=== PATIENT | female | born 1980 | race Two or more races ===

== ENCOUNTER 2021-04-23 08:22 | Outpatient (REF) | payer OTHER, SELFPAY ==
[2021-04-27 09:06] LABS: HPV 16 RNA NOT DETECTED (NOT DETECTED); HPV mRNA E6/E7 rflx Detected (Not Detected)
== END 2021-04-23 08:23 | disposition home or self-care (01) ==
LOC: HO.LAB 08:22
PROVIDERS: PCP Hospitalist; Visit Provider Obstetrics & Gynecology
DX: Z01.419 Encounter for gynecological examination (general) (routine) without abnormal findings (principal); Z11.51 Encounter for screening for human papillomavirus (HPV)
CPT/HCPCS: 87624; 87625; 88142

== ENCOUNTER 2021-05-01 14:07 | Outpatient (REF) | payer OTHER, SELFPAY ==
[2021-05-02 02:48] LABS: CT PCR NOT DETECTED (Not Detect.); NG PCR NOT DETECTED (Not Detect.)
== END 2021-05-01 14:08 | disposition home or self-care (01) ==
LOC: HO.LAB 14:07
PROVIDERS: PCP Hospitalist; Visit Provider Obstetrics & Gynecology
DX: R93.89 Abnormal findings on diagnostic imaging of other specified body structures (principal)
CPT/HCPCS: 87491; 87591

== ENCOUNTER 2021-06-03 12:39 | Outpatient (REF) | payer OTHER, SELFPAY ==
--- NOTE | ~2021-06-03 | MM_ITS ---
EXAMINATION: MM SCREENING DIGITAL BREAST TOMOSYNTHESIS, BILATERAL CLINICAL INFORMATION: Screening. Asymptomatic. Age 41. No prior breast imaging. The lifetime risk of breast cancer based on the Tyrer-Cuzick Model is 12%. COMPARISON: None (current study represents initial baseline exam). TECHNIQUE: Digital breast tomosynthesis is performed in both the craniocaudal and mediolateral oblique views along with computer-aided detection (CAD). Synthesized 2D images are generated from the tomosynthesis. FINDINGS: There are scattered areas of fibroglandular density (ACR BI-RADS breast composition Category b). There are no significant masses, abnormal calcifications, or other abnormalities. No architectural abnormality. The axilla and skin contours are unremarkable. MM/MM tomosynthesis screening BI IMPRESSION: No mammographic evidence of malignancy. ASSESSMENT: BI-RADS 1: Negative RECOMMENDATION: Routine annual mammography screening. This patient's information was entered into a reminder system with a target due date for their next mammogram.
== END 2021-06-03 12:40 | disposition home or self-care (01) ==
LOC: HO.MAMMO 12:39
PROVIDERS: Visit Provider Obstetrics & Gynecology
DX: Z12.31 Encounter for screening mammogram for malignant neoplasm of breast (principal)
CPT/HCPCS: 77063; 77067

== ENCOUNTER → 2021-06-10 14:43 | Outpatient (BNVA) | payer OTHER, SELFPAY | PROVIDERS: PCP Hospitalist | DX: Z13.89 Encounter for screening for other disorder (principal) ==

== ENCOUNTER 2021-06-25 13:28 | Outpatient (REF) | payer OTHER, SELFPAY ==
--- NOTE | ~2021-06-25 | US_ITS ---
EXAMINATION: US PELVIS CLINICAL INFORMATION: Urinary tract infection. COMPARISON: None TECHNIQUE: Ultrasound of the pelvis is performed using both transabdominal and transvaginal transducers along with Doppler. Transvaginal imaging is performed due to inadequate visualization transabdominally. FINDINGS: UTERUS: The uterus is anteverted and measures 9.1 x 4.3 x 5.5 cm. Nabothian cysts are seen within the cervix. The double wall endometrial thickness is 6 mm. The uterus is smooth in contour and has normal myometrial echogenicity. No visible fibroid. ADNEXA: Both ovaries are visualized. There is normal color flow to the adnexa. There is no ovarian torsion. There is no pelvic ascites or fluid collection. Right ovary measures 3.0 x 1.5 x 2.2 cm. Volume of 5.2 mL. There is a 1.3 x 1.1 x 1.2 cm simple cyst. Left ovary measures 2.4 x 1.2 x 1.9 cm. There is a small amount of free pelvic fluid identified. US/US pelvic and transvaginal IMPRESSION: 1.3 cm simple-appearing right ovarian cyst. Nabothian cysts. Small amount of free pelvic fluid.
== END 2021-06-25 13:29 | disposition home or self-care (01) ==
LOC: HO.US 13:28
PROVIDERS: Visit Provider Obstetrics & Gynecology
DX: R93.89 Abnormal findings on diagnostic imaging of other specified body structures (principal)
CPT/HCPCS: 76830; 76856

== ENCOUNTER → 2021-07-01 14:00 | Outpatient (BNVA) | payer OTHER, SELFPAY | PROVIDERS: PCP Hospitalist; Visit Provider Obstetrics & Gynecology | DX: R87.810 Cervical high risk human papillomavirus (HPV) DNA test positive (principal); Z32.02 Encounter for pregnancy test, result negative | CPT/HCPCS: 57452; 81025 ==

== ENCOUNTER 2021-09-24 16:05 | Outpatient (REF) | payer OTHER, SELFPAY ==
--- NOTE | ~2021-09-24 | US_ITS ---
EXAMINATION: US RETROPERITONEAL LIMITED (RENAL ONLY) CLINICAL INFORMATION: Calculus of kidney. COMPARISON: None TECHNIQUE: Real-time imaging of the kidneys. FINDINGS: RIGHT KIDNEY: 12.0 x 5.8 x 4.7 cm (SAG x AP x TRV). The kidney is normal in size, contour, and echogenicity. Renal cortical thickness is normal. No focal parenchymal lesions or hydronephrosis. There are small echogenic stones without caliectasis. Upper pole echogenic stones measure 0.3 cm, 0.3 cm, midpole stones measure 0.3 cm and 0.4 cm. LEFT KIDNEY: 10.5 x 5.5 x 5.4 cm (SAG x AP x TRV). The kidney is normal in size, contour, and echogenicity. Renal cortical thickness is normal. No focal parenchymal lesions or hydronephrosis. There is an echogenic stone in the upper pole measuring 0.3 cm without caliectasis. There is mild pelvic fullness. US/US renal BI IMPRESSION: Bilateral nonobstructive echogenic renal calculi. No caliectasis. There is minimal fullness left kidney.
== END 2021-09-24 16:06 | disposition home or self-care (01) ==
LOC: HO.US 16:05
DX: N20.0 Calculus of kidney (principal)
CPT/HCPCS: 76775

== ENCOUNTER 2022-10-23 16:26 | Outpatient (REF) | payer BC, SELFPAY ==
[2022-10-23 18:23] LABS: Alanine Aminotransferase 11 U/L (0-31); Albumin Level 3.9 g/dL (3.5-5.0); Alkaline Phosphatase 54 U/L (39-117); Aspartate Amino Transferase 16 U/L (5-31); Bilirubin Direct 0.1 mg/dL (0.0-0.5); Bilirubin Total 0.3 mg/dL (0.0-1.0); Estimated Glomerular Filt Rate > 60; Total Protein 7.2 g/dL (6.5-8.0)
[2022-10-24 08:51] LABS: ~HepC Num1 0.07 S/CO (0.00-0.79); ~Hepatitis C Antibody Nonreactive (Nonreactive)
[2022-10-24 08:55] LABS: HBS Num1 11.65 mIU/mL (0-7.99); HBsAGNum1 0.42 S/CO (0.00-0.99); Hepatitis B Core Antibody Nonreactive (Nonreactive); Hepatitis B Surface Antigen Negative (Negative); Syphilis Screen Nonreactive (Nonreactive)
[2022-10-24 13:29] LABS: HBS Num2 10.88 mIU/mL (0-7.99); HBS Num3 11.74 mIU/mL (0-7.99); ~Hepatitis B Surface Antibody GRAYZONE (Nonreactive)
[2022-10-25 17:44] LABS: C. trachomatis RNA TMA NOT DETECTED (NOT DETECTED); N. gonorrhoeae RNA TMA NOT DETECTED (NOT DETECTED)
[2022-10-29 14:59] LABS: C. Trachomatis RNA TMA, Throat NOT DETECTED; N. gonorrhoeae RNA TMA, Throat NOT DETECTED
== END 2022-10-23 16:27 | disposition home or self-care (01) ==
LOC: HO.HHCL 16:26
PROVIDERS: Visit Provider Internal Medicine
DX: Z77.21 Contact with and (suspected) exposure to potentially hazardous body fluids (principal)
CPT/HCPCS: 0353U; 36415; 80076; 82565; 86704; 86706; 86780; 86803; 87340; 87491; 87591

== ENCOUNTER 2023-05-12 11:23 | Outpatient (REF) | payer BC, SELFPAY ==
[2023-05-12 12:42] LABS: Alanine Aminotransferase 14 U/L (0-31); Albumin Level 3.7 g/dL (3.5-5.0); Alkaline Phosphatase 52 U/L (39-117); Anion Gap 11 (12-20); Aspartate Amino Transferase 17 U/L (5-31); Bilirubin Total 0.4 mg/dL (0.0-1.0); Blood Urea Nitrogen 5 mg/dL (9-16); Calcium 8.7 mg/dL (8.4-10.2); Carbon Dioxide 25 mmol/L (22-29); Chloride 107 mmol/L (96-108); Cholesterol 222 mg/dL (<200); Estimated Glomerular Filt Rate > 60; Glucose Fasting 79 mg/dL (60-99); HDL Cholesterol 52 mg/dL (>40); LDL Cholesterol Calculated 154 mg/dL (<100); Potassium 3.4 mmol/L (3.3-5.1); Sodium 140 mmol/L (135-145); Total Protein 7.1 g/dL (6.5-8.0); Triglycerides 81 mg/dL (<150)
[2023-05-12 12:54] LABS: Syphilis Screen Nonreactive (Nonreactive)
[2023-05-12 12:57] LABS: HBsAGNum1 0.31 S/CO (0.00-0.99); HIV AB/AG Nonreactive (Nonreactive); HIV Num 1 0.04 S/CO (0.00-0.99); Hepatitis B Surface Antigen Negative (Negative); ~HepC Num1 0.12 S/CO (0.00-0.79); ~Hepatitis C Antibody Nonreactive (Nonreactive)
[2023-05-12 13:00] LABS: TSH reflex Free T4 0.71 uIU/mL (0.32-4.0)
[2023-05-12 14:04] LABS: Creatinine Urine 51.75 mg/dL; Microalbum/Creatinine Ratio Ur 9.6 ug/mg cr (<30)
[2023-05-13 22:29] LABS: Anti DNA DS Antibody <1 IU/mL; SM/Ribonucleoprotein Ab <1.0 NEG AI (<1.0 NEG); Smith Protein <1.0 NEG AI (<1.0 NEG)
[2023-05-14 11:43] LABS: Complement C3 90 mg/dL (83-193)
[2023-05-15 08:34] LABS: Lipoprotein A 181 nmol/L (<75)
[2023-05-16 12:24] LABS: VITAMIN D (1,25 OH) D3 68 pg/mL; Vit D (1,25-Dihydroxy) Total 68 pg/mL (18-72); Vitamin D (1,25 OH) D2 <8 pg/mL
== END 2023-05-12 11:24 | disposition home or self-care (01) ==
LOC: HO.LAB 11:23
PROVIDERS: PCP Nurse Practitioner Family; Visit Provider Nurse Practitioner Family
DX: Z00.00 Encounter for general adult medical examination without abnormal findings (principal); Z13.6 Encounter for screening for cardiovascular disorders; L81.1 Chloasma; Z20.2 Contact with and (suspected) exposure to infections with a predominantly sexual mode of transmission
CPT/HCPCS: 36415; 80053; 80061; 82043; 82570; 82652; 83695; 84443; 86160; 86225; 86235; 86780; 86803; 87340; 87389

== ENCOUNTER 2023-05-22 16:10 | Outpatient (AMB) | payer BC, SELFPAY ==
--- NOTE | 2023-05-22 16:06 | MHC.PC.OV ---
Intake Visit Reasons: Lab Results Intake Note: Lab results Restaurant Host/Hostess Required: No Allergies No Known Allergies Allergy (Verified 05/22/23 16:46) Medication List - Last Reconciled 05/22/23 by DRU Carter ibuprofen 600 mg PO Q6H PRN levonorgestrel-ethinyl estrad 0.1-20 mg-mcg (Sronyx) 1 tab PO DAILY valacyclovir 500 mg PO BID Tobacco use date assessed: 05/22/23 Dental Screening Dental Screen Date: 05/05/23 HPI HPI Comments History of Present Illness Details Telehealth visit today to discuss labs. Labs from 05/13/2023 show a normal CMP, elevated total cholesterol 222, LDL 154, HDL 52, normal TSH, normal urine microalbumin creatinine ratio, normal STD panel, normal smooth antibody, SM-MACHINE DEICER ELEMENT WINDER antibody, antidouble strand DNA antibody, Vit D WNL , lipoprotein A 181, C4 10 (L) She has the echocardiogram scheduled for 06/09/2023. Denies any new cardiac complaints. She is willing to be referred to Cardiology for further evaluation and treatment of the elevated lipoprotein a, family history of early cardiac disease and as well as her murmur. Offered to prescribe a statin or wait until evaluated by Cardiology for recommendations. She prefers to wait until she is evaluated by Cardiology. She is also okay with seeing Rheumatology for the low C4 in the presence of melasma. [facility] Medical History JAH I (cervical intraepithelial neoplasia I) Renal calculi Surgical History History of appendectomy Family History Mother High blood pressure High cholesterol Social History (Updated 05/05/23 @ 15:47 by Lakesha Grant CMA) Housing: House Alcohol intake: current Alcohol intake frequency: holidays/special occasions only Patient Tobacco Use Status: Never used Tobacco e-Cigarette/Vaping Use: Never Used Second Hand Smoke Exposure: Yes service: No Current occupational status: employed Current occupation: [employer] Cognitive needs: No Hearing needs: No Vision needs: No Female Reproductive History Menstrual Age of Menarche: 10 Questionnaire Thrive Questionnaire Date Thrive assessed: 05/05/23 GÓMEZ-7 AMB Questionnaire GÓMEZ-7 Date GÓMEZ - 7 assessed: 11/27/20 Source: Developed by Drs. Jim Triplett, Syeda Moses, Charly Watts and colleagues, with an educational jhon from [employer]. Physical exam (Primary Care) Tobacco/Smoking Status: Tobacco use Status Tobacco use date assessed 05/22/23 05/22/23 16:08 Patient Tobacco Use Status Never used Tobacco 05/22/23 16:08 e-Cigarette/Vaping Use Never Used 05/22/23 16:08 Thrive Assessment: Date of Thrive Assessment Date Thrive assessed 05/05/23 05/22/23 16:08 Telehealth Telehealth Location of provider rendering services: practice address Location of patient: address on file Patient Identification confirmed using: Name, : Yes Telehealth method: voice only Patient verbally consented to treatment: Yes Patient verbally consented to billing insurance company: Yes Patient informed of any privacy concerns related to visit: Yes Minutes spent on Phone/Video with Pt.: 8 Assessment and Plan Assessment & Plan (1) Heart murmur: Comment: Echocardiogram ordered Code(s): R01.1 - Cardiac murmur, unspecified (2) Melasma: Comment: Lupus panel ordered, negative except for a low C4. Refer to rheumatology for evaluation and treatment Code(s): L81.1 - Chloasma (3) Low serum complement C4: Code(s): R77.8 - Other specified abnormalities of plasma proteins (4) Family history of cardiac arrest: Code(s): Z82.49 - Family history of ischemic heart disease and other diseases of the circulatory system (5) Hyperlipidemia: Code(s): E78.5 - Hyperlipidemia, unspecified (6) Elevated lipoprotein A level: Comment: May. Referred to Cardiology for further evaluation and treatment Code(s): E78.41 - Elevated Lipoprotein(a) Orders: Referrals Rheumatology Referral L81.1 - Chloasma, R77.8 - Other specified abnormalities of plasma proteins Cardiology Referral E78.41 - Elevated Lipoprotein(a), E78.5 - Hyperlipidemia, unspecified, R01.1 - Cardiac murmur, unspecified, Z82.49 - Family history of ischemic heart disease and other diseases of the circulatory system Coding Level of Care Code Tele Est Pt Level 2 (60479) Diagnoses Heart murmur R01.1 Melasma L81.1 Low serum complement C4 R77.8 Family history of cardiac arrest Z82.49 Hyperlipidemia E78.5 Elevated lipoprotein A level E78.41
--- OUTSIDE RECORDS SUMMARY | 2023-05-22 16:11 | XMS_ITS | Continuity of Care Document ---
Author Organization [facility] Address [address] [place] [address]- Care Team Providers Care Creative Manager Name Role Phone Not on Staff, PCP Primary Care Physician Unavail able Encounter [facility] Date(s): 04/27/21 - 04/28/[address] [address]- Discharge Disposition: A-D/C Home Attending Physician: Macy Rivera MD Admitting Physician: Macy Rivera MD Referring Physician: Not on Staff, Referring MD Allergies, Adverse Reactions, Alerts No Known Allergies Immunizations Given and Recorded Vaccine Date Status Refusal Reason SARS-CoV-2 (COVID-19) mRNA BNT-162b2 vac 03/07/20 Recorded SARS-CoV-2 (COVID-19) mRNA BNT-162b2 vac 02/15/20 Recorded Influenza Virus Vaccine (oldterm) 11/09/19 Recorde d influenza virus vaccine, inactivated 11/19/18 Ran rded influenza virus vaccine, inactivated 11/05/12 Ran rded influenza virus vaccine, inactivated 11/13/11 Ran rded Measles/Mumps/Rubella Virus Vaccine 09/03/07 Recor ded Medications Bactrim 400 mg-80 mg oral tablet 2 tablet, By Mouth, Every 12 hours, for 13 days, # 26 capsule, 0 Refills, Acute 05/11/21 1:48:00 EDT, 04/28/21 1:48:00 EDT, Tablet, [facility]/pharmacy #[id number], Partial fill upon patient request if the prescription is for a schedule II opioid drug., 2 tablet B... Start Date: 04/28/21 Stop Date: 05/11/21 Status: Ordered Vital Signs Most recent to oldest [Reference Range]: 1 2 3 Height 163 cm (04/28/21 1:54 AM) 163 cm (04/28/21 1:15 AM) 163 cm (04/27/21 11:30 PM) Weight 67.5 kg (04/28/21 1:54 AM) 67.5 kg (04/28/21 1:15 AM) 67.5 kg (04/27/21 11:30 PM) Oxygen Saturation [94-100 %] 100 % (04/28/21 1:54 AM) 100 % (04/28/21 1:15 AM) 100 % (04/27/21 11:30 PM) Pulse Rate [55-90 bpm] 88 bpm (04/28/21 1:54 AM) 97 bpm *H* (04/28/21 1:15 AM) 86 bpm (04/27/21 11:30 PM) Body Mass Index [18.5-24.99] 25.41 *H* (04/28/21 1:54 AM) 25.41 *H* (04/28/21 1:15 AM) 25.41 *H* (04/27/21 11:30 PM) Blood Pressure [90-138/55-84 mm Hg] 105/68mm Hg (04/28/21 1:54 AM) 111/90mm Hg (04/28/21 1:15 AM) 117/74mm Hg (04/27/21 11:30 PM) Respiratory Rate [16-30 br/min] 18 br/min (04/28/21 1:15 AM) 18 br/min (04/27/21 11:30 PM) 20 br/min (04/27/21 8:52 PM) Temperature [96.8-100.4 DegF] 98.7 DegF (04/27/21 8:52 PM) Liters per Minute 0 L/min (04/28/21 1:54 AM) 0 L/min (04/28/21 1:15 AM) 0 L/min (04/27/21 11:30 PM) Mode of Delivery (Oxygen) Room air (04/28/21 1:54 AM) Room air (04/28/21 1:15 AM) Room air (04/27/21 11:30 PM) Blood pressure sites Arm, left (04/28/21 1:54 AM) Arm, left (04/28/21 1:15 AM) Arm, left (04/27/21 11:30 PM) Temperature Route Temporal (04/27/21 8:52 PM) Dry Weight 67.5 kg (04/28/21 1:54 AM) 67.5 kg (04/28/21 1:15 AM) 67.5 kg (04/27/21 11:30 PM)
--- OUTSIDE RECORDS SUMMARY | 2023-05-22 16:11 | XMS_ITS | Continuity of Care Document ---
Author Organization [facility] Address [address] [place] [address]- Care Team Providers Care Butcher Assistant Name Role Phone Not on Staff, PCP Primary Care Physician Unavail able Encounter [facility] Date(s): 10/15/21 - 11/14/21 [facility] [address]- [place] Allergies, Adverse Reactions, Alerts No Known Allergies Immunizations Given and Recorded Vaccine Date Status Refusal Reason SARS-CoV-2 (COVID-19) mRNA BNT-162b2 vac 02/06/21 Recorded SARS-CoV-2 (COVID-19) mRNA BNT-162b2 vac 03/07/20 Recorded SARS-CoV-2 (COVID-19) mRNA BNT-162b2 vac 02/15/20 Recorded influenza virus vaccine, inactivated 12/18/20 Ran rded influenza virus vaccine, inactivated 11/19/18 Ran rded influenza virus vaccine, inactivated 11/05/12 Ran rded influenza virus vaccine, inactivated 11/13/11 Ran rded Influenza Virus Vaccine (oldterm) 11/09/19 Recorde d Measles/Mumps/Rubella Virus Vaccine 09/03/07 Recor ded Patient Care team information Personnel Name: Not on Staff, PCP
--- OUTSIDE RECORDS SUMMARY | 2023-05-22 16:11 | XMS_ITS | Continuity of Care Document ---
Author Organization [facility] Address [address] [place] [address]- Care Team Providers Care Mixed Crop Farmer Name Role Phone Not on Staff, PCP Primary Care Physician Unavail able Encounter [facility] Date(s): 12/21/19 - 01/20/20 [facility]/[address] [address] Immunizations Given and Recorded Vaccine Date Status Refusal Reason Influenza Virus Vaccine (oldterm) 11/09/19 Recorde d
--- OUTSIDE RECORDS SUMMARY | 2023-05-22 16:11 | XMS_ITS | Continuity of Care Document ---
Author Organization [facility] Address [address] [place] [address]- Care Team Providers Care Underwriting Account Representative Name Role Phone Not on Staff, PCP Primary Care Physician Unavail able Encounter [facility] Date(s): 02/21/19 - 03/03/19 [facility] [address] [place] [address]- [facility] Attending Physician: Manuelito Tucker Admitting Physician: Manuelito Tucker Referring Physician: Manuelito Tucker
--- OUTSIDE RECORDS SUMMARY | 2023-05-22 16:11 | XMS_ITS | Continuity of Care Document ---
Author Organization [facility] Address [address] [place] [address]- Care Team Providers Care Snow Technician Name Role Phone Not on Staff, PCP Primary Care Physician Unavail able Encounter [facility] Date(s): 01/11/19 - 03/23/19 [facility] [address] [place] [address]- [facility] Attending Physician: Gilbert VARNER, Sabino
--- OUTSIDE RECORDS SUMMARY | 2023-05-22 16:11 | XMS_ITS | Continuity of Care Document ---
Author Organization [facility] Address [address] [place] [address]- Care Team Providers Care Tongsman Name Role Phone Not on Staff, PCP Primary Care Physician Unavail able Encounter [facility] Date(s): 10/14/19 - 11/13/19 [facility]/[address] [address]- [facility]
== END 2023-05-22 16:48 | disposition home or self-care (01) ==
LOC: HO.HMGFM 16:10
PROVIDERS: PCP Nurse Practitioner Family; Visit Provider Nurse Practitioner Family
DX: R01.1 Cardiac murmur, unspecified (principal); L81.1 Chloasma; R77.8 Other specified abnormalities of plasma proteins; Z82.49 Family history of ischemic heart disease and other diseases of the circulatory system; E78.5 Hyperlipidemia, unspecified; E78.41 Elevated Lipoprotein(a)
CPT/HCPCS: 99441

== ENCOUNTER → 2023-06-09 12:53 | Outpatient (REF) | payer BC, SELFPAY ==
--- NOTE | 2023-06-09 12:56 | CA_ITS ---
Transthoracic Echocardiogram Patient (Last, First, Middle): Remedios Tadeo, Gender: Female Date of : 1980 Age: 43 Procedure Date: 06/09/2023 Procedure Type: Transthoracic Echocardiogram Location: OP Height: 162.56 cm Weight: 61.24 kg BSA: 1.66 m2 Heart Rate: bpm BP: 104 / 68 mmHg Quality Control Scientist: TO Referring MD: Debbie Novak [facility] Symptoms: R01.1 - Cardiac murmur, unspecified Study Quality: Fair ECG Rhythm: Sinus Conclusions: - The left ventricular systolic function is low normal. The visually estimated ejection fraction is between 50-55%. - No obvious valvular pathology seen on this study. Findings Left Ventricle Normal left ventricular cavity size. There is normal left ventricular wall thickness. The left ventricular systolic function is low normal. The visually estimated ejection fraction is between 50-55%. There is no evidence of regional wall motion abnormalities. Diastolic function is normal for age. LV peak GLS -18.4%, but could be overestimate. Right Ventricle Normal right ventricular cavity size and systolic function. Atria Both atria are normal in size. Aortic Valve There is a normal trileaflet aortic valve. There is no aortic valve stenosis. There is no aortic valve regurgitation. Mitral Valve The mitral valve appears normal. There is mild mitral annular calcification. There is trace mitral valve regurgitation. There is no mitral valve stenosis. Pulmonic Valve The pulmonic valve is likely normal. Tricuspid Valve There is trace tricuspid valve regurgitation. There is no evidence of pulmonary hypertension. Great Vessels The asc aorta is normal in size. Venous The inferior vena cava is normal in size and collapses greater than 50% with inspiration. Pericardium/Pleural There is no evidence of pericardial effusion. Prior Study Comparison No prior study available for comparison. Recommendations, Care & Conclusions No obvious valvular pathology seen on this study. Measurements 2D Linear Measurements IVSd: 0.98 0.6-0.9/0.6-1.0 cm LVIDd: 4.31 3.9-5.3/4.2-5.9 cm LVIDd Index: 2.60 2.4-3.2/2.2-3.1 cm/m2 LVIDs: 3.18 2.0-3.6 cm LVPWd: 0.64 0.7-1.1 cm LA Diam: 3.20 2.7-3.8/3.0-4.0 cm LAIDs Index: 1.93 1.5-2.3 cm/m2 LV Mass: 133.38 67-162/88-224 g LV Mass Index: 80.35 43-95/49-115 g/m2 LVOT Diam: 2.10 3.0+(-)1.3 cm 2D Systolic Function EF 4C: 55.70 >55% EF 2C: 62.80 >55% EF BiP: 59.60 >55% Mitral Valve MV Pk E: 0.57 MV PK A: 0.34 MV Decel Time: 201.00 E/A: 1.70 E'Lateral: 7.83 E'Medial: 7.07 E/E' Med: 8.10 E/E' Lat: 7.30 PHT: 59.00 MVA PHT: 3.73 Decel Doddridge: 2.84 Aortic Valve AoV Pk Lopez: 1.15 AoV Mn Lopez: 0.84 AoV VTI: 0.21 AoV Pk Grad: 5.00 Aov Mn Grad: 3.00 ANALILIA Cont.VTI: 2.91 LVOT LVOT Pk Lopez: 0.99 LVOT Mn Lopez: 0.61 LVOT VTI: 0.18 LVOT Pk Grad: 4.00 LVOT Mn Grad: 2.00 LVOT Diam: 2.10 LVOT Area: 3.46 Diastolic Function MV Pk E: 0.57 MV Pk A: 0.34 E/A: 1.70 E'Medial: 7.07 E/E' Med: 8.10 E' Laterial: 7.83 E/E' Lat: 7.30 Right Ventricle TAPSE (mm): 24.00 TVS' Lopez: 13.60 Tricuspid Valve TR Pk Lopez: 1.67 TR Pk Grad: 11.00 RA Press: 3.00 RVSP: 14.00 Great Vessels Aorta Sinus of Valsalva: 3.25 2.0-3.[address] [place]: 2.65 1.7-3.4 cm Ao Asc: 2.80 2.1-3.4 cm Updated in Other Vendor System with Status of Final Low Cabral MD electronically signed on 06/10/2023 12:00:34 PM with status of Final
== END ==
LOC: HO.CARD 12:53
PROVIDERS: PCP Nurse Practitioner Family; Visit Provider Nurse Practitioner Family
DX: R01.1 Cardiac murmur, unspecified (principal)
CPT/HCPCS: 93306; 93356

== ENCOUNTER → 2023-06-09 12:56 | Outpatient (BNV) | payer BC, SELFPAY | PROVIDERS: PCP Nurse Practitioner Family; Visit Provider Internal Medicine | DX: R01.1 Cardiac murmur, unspecified (principal) | CPT/HCPCS: 93306; 93356 ==

== ENCOUNTER 2023-10-01 14:36 | Outpatient (AMB) | payer OTHER, SELFPAY ==
[2023-10-01 14:43] VITALS: BP 108/72; PULSE 87; BMI 23.9
--- NOTE | 2023-10-01 14:43 | MHC.OFFVIS ---
Vital Signs 10/01/23 14:43 Height 5 ft 2 in Weight 130 lb 8.218 oz BMI 23.9 BP 108/72 Blood Pressure Location Rt brachial Position Sitting Pulse 87 Pulse Source Pulse Oximeter Intake Visit Reasons: f/u Oysterman Required: No Allergies No Known Allergies Allergy (Verified 10/01/23 14:46) Medication List - Last Reconciled 10/01/23 by Aviva Neal NP-C ibuprofen 600 mg PO Q6H PRN levonorgestrel-ethinyl estrad 0.1-20 mg-mcg (Sronyx) 1 tab PO DAILY valacyclovir 500 mg PO BID HPI HPI f/u: Details: Remedios is a 43-year-old female with past medical history of hyperlipidemia, family history of heart disease, recent heart murmur who was referred to Cardiology for further evaluation. Today she presents for cardiology consultation. She tells me that she feels well with no concerning symptoms. She has no chest discomfort at rest or with activity, shortness of breath, palpitations, lightheadedness. She has never had syncope in the past. She reports very good activity tolerance. 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 She also goes to the gym routinely and will go on the treadmill for over 30 minutes at a speed of 3.8 mph with incline and tolerates it well. She tells me she has had high cholesterol since age 18. She has not been on medical management by her own choice. She works on following a low-cholesterol diet. Recently she has cut back on sugar and carbs and has reduced her weight by 20 lb. She has never been told in the past that she had a heart murmur. She has never been diagnosed with any cardiac condition. She denies history of diabetes, hypertension, chronic kidney disease. She tells me her father had fatal UT at age 52, maternal grandfather had fatal UT in his 60s and her daughter had a heart transplant for cardiomyopathy at age 3 months. Her daughter is now 17 years old and is doing well. She has a son who is healthy and has no heart conditions. She is a nonsmoker and only rare alcohol use. [facility] Medical History Renal calculi JAH I (cervical intraepithelial neoplasia I) Surgical History History of appendectomy Family History (Updated 10/01/23 @ 15:57 by LUCILA English) Mother High blood pressure High cholesterol Father Myocardial infarct Daughter Heart transplant recipient Social History Housing: House Alcohol intake: current Alcohol intake frequency: holidays/special occasions only Patient Tobacco Use Status: Never used Tobacco e-Cigarette/Vaping Use: Never Used Second Hand Smoke Exposure: Yes service: No Current occupational status: employed Current occupation: [employer] Cognitive needs: No Hearing needs: No Vision needs: No Female Reproductive History Menstrual Age of Menarche: 10 Review of Systems Const All systems reviewed & are unremarkable except as noted in HPI and below ENT Denies dizziness Card Denies chest pain, Denies chest pain at rest, Denies chest pain with activity, Denies rapid heart rate, Denies pedal edema, Denies edema, Denies leg edema, Denies lightheadedness, Denies palpitations, Denies dyspnea, Denies dyspnea on exertion and Denies orthopnea Resp Denies cough, Denies dyspnea and Denies dyspnea on exertion GI Denies hematochezia and Denies change in stool character Musc Denies abnormal gait, Denies limited range of motion, Denies muscle cramps, Denies muscle weakness, Denies numbness, Denies radiating pain into limb, Denies stiffness and Denies tingling Neuro Denies abnormal gait, Denies dizziness, Denies numbness and Denies tingling Endo Denies palpitations Physical Exam Vital Signs: Last Vital Signs Pulse 87 10/01/23 14:43 BP 108/72 10/01/23 14:43 BMI result Body Mass Index 23.9 Const General: cooperative, healthy appearing, comfortable and no acute distress Orientation/consciousness: patient oriented x3 Neck Neck: Yes normal visual inspection Resp Effort & Inspection: normal respiratory effort Auscultation: clear to auscultation bilaterally, no crackles, no rales, no rhonchi and no wheezes Cardio Jugular venous distension: no JVD Rate: regular rate Rhythm: regular rhythm Heart sounds: S1 normal heart sound present, S2 normal heart sound present, no murmurs and no rubs Neuro General: patient oriented x3 Extrem General: Yes normal to inspection and No no pedal edema Psych Appearance: grossly normal Mental Status: mental status grossly normal Speech and movement: Normal speech and movement present Office Procedures EKG Details: Today, read by me, normal sinus rhythm with sinus arrhythmia, rate 76, normal UT, QRS and QTC. [id number], Complete Assessment & Plan Assessment & Plan (1) Heart murmur: Comment: Echocardiogram ordered Code(s): R01.1 - Cardiac murmur, unspecified Category: Medical Plan: Referred here for Heart murmur as identified by her PCP. No history of having heart murmur noted in the past. An echocardiogram had been performed 06/09/23 showing EF 50-55%, no valve abnormalities. On my examination I am not hearing heart murmur at this time. Reviewed echo findings with her in detail. No further testing needed at this time. (2) Family history of cardiac arrest: Code(s): Z82.49 - Family history of ischemic heart disease and other diseases of the circulatory system Category: Medical Plan: Family history as described above. Patient has no anginal sounding symptoms and has very good activity tolerance. Her EKG done today shows normal sinus rhythm with sinus arrhythmia, rate 76. Echocardiogram shows low normal EF however study quality was fair. It could be a technical issue and not truly low normal EF. Spent time discussing this with her as well as signs and symptoms of angina. She states full understanding. 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 Informed her that if she has any concerning symptoms such as shortness of breath, chest pain, pressure then a cardiac stress test can be performed. With her good exercise tolerance and absence of symptoms stress test can be held at this time. Patient is agreeable to this plan. Emergency care if ever needed for symptoms. (3) Hyperlipidemia: Code(s): E78.5 - Hyperlipidemia, unspecified Category: Medical Plan: History of hyperlipidemia, patient reports since age 18. She has not been on medication for this. Labs done 05/12/2023 shows LDL 154, lipoprotein a 181. Reviewed results with her and discussed possible use of medications to help improve these numbers since she does have a family history of CAD. She does not want to start on medication. She is working on diet control, exercise and has recently lost 20 lb. She is aware that untreated high cholesterol can cause atherosclerotic heart and vascular disease. She will continue to follow with her PCP for this. Cardiology follow-up can be as needed. (4) Elevated lipoprotein A level: Comment: May. Referred to Cardiology for further evaluation and treatment Code(s): E78.41 - Elevated Lipoprotein(a) Category: Medical Plan: As above. Patient declines med management. Will have her continue to follow with PCP. If things change in she is willing to start on med management we would happily assist with this. Plan Time spent on chart review, documentation, interview and assessment Coding Level of Care Code New Pt Level 3 (15256) Diagnoses Heart murmur R01.1 Family history of cardiac arrest Z82.49 Hyperlipidemia E78.5 Elevated lipoprotein A level E78.41 CPT Codes EKG - CPT: [id number], Complete ([id number]) Time Spent (min) 28
== END 2023-10-01 15:22 | disposition home or self-care (01) ==
PROVIDERS: PCP Nurse Practitioner Family; Visit Provider Nurse Practitioner Family
DX: R01.1 Cardiac murmur, unspecified (principal); Z82.49 Family history of ischemic heart disease and other diseases of the circulatory system; E78.5 Hyperlipidemia, unspecified; E78.41 Elevated Lipoprotein(a)
CPT/HCPCS: 93010; 99203

== ENCOUNTER → 2023-10-01 14:36 | Outpatient (BNVA) | payer BC, SELFPAY | PROVIDERS: PCP Nurse Practitioner Family; Visit Provider Nurse Practitioner Family | DX: R01.1 Cardiac murmur, unspecified (principal); E78.5 Hyperlipidemia, unspecified; E78.41 Elevated Lipoprotein(a); Z82.49 Family history of ischemic heart disease and other diseases of the circulatory system | CPT/HCPCS: 93005 ==